=== PATIENT | male | born 1960 | race Caucasian/White ===

== ENCOUNTER 2021-04-26 07:01 | Emergency (ER) | payer BC ==
[~2021-04-26] VITALS: Ht 182.9 cm; Wt 113.6 kg
[2021-04-26 07:16] VITALS: TEMP 97.9
[2021-04-26] MEDS ORDERED: XARELTO20 MG PO (07:27)
[2021-04-26] MEDS ORDERED: CARDIZEM LA120 MG PO (07:27)
[2021-04-26] MEDS ORDERED: ZYLOPRIM 100MG100 MG PO (07:29)
[2021-04-26] MEDS ORDERED: LIPITOR 40MG TA40 MG PO (07:29)
[2021-04-26] MEDS ORDERED: COZAAR 50MG50 MG/TAB PO (07:29)
[2021-04-26] MEDS ORDERED: TOPROL XL 50MG50 MG PO (07:30)
[2021-04-26] MEDS ORDERED: ZOFRAN ODT4 MG PO (09:13)
[2021-04-26 09:30] VITALS: BP 160/108; PULSE 87
== END 2021-04-26 09:40 | disposition home or self-care (01) ==
LOC: COL.ER 07:01
DX: R04.0 Epistaxis (principal); I48.91 Unspecified atrial fibrillation; I25.10 Atherosclerotic heart disease of native coronary artery without angina pectoris; I10 Essential (primary) hypertension; Z79.01 Long term (current) use of anticoagulants; Z79.899 Other long term (current) drug therapy

== ENCOUNTER 2021-04-26 10:10 | Inpatient (IN) | payer BC ==
[~2021-04-26] VITALS: Ht 182.9 cm; Wt 114.0 kg
[2021-04-26] VITALS (166 sets, daily range): BP systolic 130–156; BP diastolic 91–110; PULSE 91–92; TEMP 98.1–98.8; O2SAT 93–100
[~2021-04-26 10:10] MED LIST: CARDIZEM LA120 MG PO; COZAAR 50MG50 MG/TAB PO; LIPITOR 40MG TA40 MG PO; TOPROL XL 50MG50 MG PO; XARELTO20 MG PO; ZOFRAN ODT4 MG PO; ZYLOPRIM 100MG100 MG PO
[2021-04-26 11:54] LABS: BASO % 0.2 % (0.0-2.0); EOS % 0.1 % (0.0-4.0); GRAN # 9.4 K/mm3 (1.4-6.5); GRAN % 84.5 % (42.2-75.2); HEMATOCRIT 47.4 % (42.0-52.0); HEMOGLOBIN 15.9 g/dl (13.5-18.0); LYMPH # 1.1 K/mm3 (1.2-3.4); LYMPH % 9.7 % (20.0-51.0); MEAN CELL VOLUME 93 fl (80.0-100.0); MEAN CORPUSCULAR HEMOGLOBIN 31 pg (27-31); MEAN CORPUSCULAR HGB CONC 34 g/dl (33.0-37.0); MEAN PLATELET VOLUME 11.7 fl (7.4-10.4); MONO # 0.6 K/mm3 (0.1-0.6); MONO % 5.1 % (1.7-9.3); PLATELET COUNT 185 K/mm3 (130-400); RED BLOOD COUNT 5.09 M/mm3 (4.20-5.60); REDCELL DISTRIBUTION WIDTH-CV 13.3 % (11.5-14.5)
[2021-04-26 12:02] LABS: CALCIUM 8.9 mg/dL (8.4-10.2); CREATININE, serum 0.86 mg/dL (0.72-1.25); POTASSIUM 4.9 mmol/L (3.5-4.5)
--- NOTE | 2021-04-26 21:00 | NUR ---
Cardene drip on standby since patient's arrival to ICU at approximately 1500. Patient's BP at this time is 155/110, which is consistent with BPs since shift change at 1900. Patient states he is experiencing a headache and some bloody drainage in throat from epistaxis, similar to what he experienced in the ED prior to initiation of cardene drip. Hospitalist, Candice, notified. Cardene drip restarted. Patient to resume all home medications in the AM.
[2021-04-27] VITALS (308 sets, daily range): BP systolic 124–142; BP diastolic 86–105; PULSE 69–107; TEMP 97.4–98.3; O2SAT 88–100
[2021-04-27 05:34] LABS: BASO % 0.1 % (0.0-2.0); EOS % 0.1 % (0.0-4.0); GRAN # 11.3 K/mm3 (1.4-6.5); GRAN % 77.5 % (42.2-75.2); HEMATOCRIT 44.1 % (42.0-52.0); HEMOGLOBIN 14.6 g/dl (13.5-18.0); LYMPH # 1.7 K/mm3 (1.2-3.4); LYMPH % 11.9 % (20.0-51.0); MEAN CELL VOLUME 93 fl (80.0-100.0); MEAN CORPUSCULAR HEMOGLOBIN 31 pg (27-31); MEAN CORPUSCULAR HGB CONC 33 g/dl (33.0-37.0); MEAN PLATELET VOLUME 11.5 fl (7.4-10.4); MONO # 1.5 K/mm3 (0.1-0.6); PLATELET COUNT 195 K/mm3 (130-400); RED BLOOD COUNT 4.77 M/mm3 (4.20-5.60); REDCELL DISTRIBUTION WIDTH-CV 13.3 % (11.5-14.5)
[2021-04-27 05:49] LABS: CREATININE, serum 0.84 mg/dL (0.72-1.25); POTASSIUM 4.1 mmol/L (3.5-4.5)
--- NOTE | 2021-04-27 07:00 | NUR ---
PT RESTING IN BED. PT'S VSS. PT OFF CARDENE DRIP SINCE 399. WILL CONTINUE TO MONTIOR.
--- NOTE | 2021-04-27 11:31 | NUR ---
warm in worker met with patient and patient's Roro ([phone]) at bedside. 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 Patient doctors currently in [place], but while here they utilizes [facility] for perscriptions. Patient is fully independent with his ADL's and does not utilize any DME to assist with ambulation. Patient has no oxygen needs at home. Patient does not have a DPOA-HC established and does not wish to at this time. Patient's is in agreement. Education provided and what a legal NOK is and who is agent would be. Both verbalize their understanding.
--- NOTE | 2021-04-27 11:33 | NUR ---
First visit from the wood heel attacher. No needs right now.
--- NOTE | 2021-04-27 12:45 | NUR ---
MESSAGE LEFT FOR ENT RN, AWAITING CALL BACK.
--- NOTE | 2021-04-27 15:13 | NUR ---
SPOKE WITH AND STATED OK TO REMOVED RHINO ROCKET. CONTINUE TO MONTIOR BLEEDING AND BP. WILL TRANSFER PT UPSTAIRS. AWAITING BED ASSIGNMENT
--- NOTE | 2021-04-27 16:10 | NUR ---
Patient to room 356 from the ICU, daughter at the bedside. A&Ox4. IV CDI. Nurse oriented the patient to location, room and call light. Denies pain and discomfort. No further needs expressed. Call light within reach
--- NOTE | 2021-04-27 16:10 | NUR ---
REPORT CALLED TO MIA RN. ALL QUESTIONS ANSWERED. 1615-PT TRANSFERED TO WHEELCHAIR AND TRANSPORTED TO ROOM 356. PT HAD PHONE, IPAD AND FINAL INSPECTION SUPERVISOR. MIA MET BEDSIDE/
--- NOTE | 2021-04-27 16:20 | NUR ---
CALLED RETURNING PREVIOUS MESSAGED. WAS INFORMED THAT PT HAD BEEN TRANSFERED UP STAIRS, BP IN THE 150'S, AND RHINO ROCKET HAD BEEN REMOVED.
--- NOTE | 2021-04-27 17:36 | NUR ---
Patient sitting up in bed. A&Ox4. VSS. No reported nose bleeds. IV CDI. Denies pain and discomfort. Independent in the room. Call light within reach
--- NOTE | 2021-04-27 20:30 | NUR ---
Patient is laying in bed, alert and oriented x 4, VSS, denies pain, nausea or vomiting. Telemetry in place. AFIB. HR 80'S. Assessment completed, medications provided. No further needs at this time. Call light within reach.
[2021-04-28 00:55] VITALS: BP 133/86; PULSE 95; TEMP 97.7
[2021-04-28 04:45] VITALS: BP 125/81; PULSE 88; TEMP 97.6
--- NOTE | 2021-04-28 05:33 | NUR ---
Patient has had an uneventful night. SBP 124-135. Report will be given to day RN.
[2021-04-28 06:45] LABS: BASO % 0.1 % (0.0-2.0); EOS % 0.4 % (0.0-4.0); GRAN # 5.3 K/mm3 (1.4-6.5); GRAN % 62.1 % (42.2-75.2); HEMATOCRIT 39.6 % (42.0-52.0); LYMPH # 1.9 K/mm3 (1.2-3.4); LYMPH % 22.9 % (20.0-51.0); MEAN CELL VOLUME 95 fl (80.0-100.0); MEAN CORPUSCULAR HEMOGLOBIN 31 pg (27-31); MEAN CORPUSCULAR HGB CONC 33 g/dl (33.0-37.0); MEAN PLATELET VOLUME 11.9 fl (7.4-10.4); MONO # 1.2 K/mm3 (0.1-0.6); MONO % 14.4 % (1.7-9.3); PLATELET COUNT 157 K/mm3 (130-400); RED BLOOD COUNT 4.16 M/mm3 (4.20-5.60); REDCELL DISTRIBUTION WIDTH-CV 13.4 % (11.5-14.5)
[2021-04-28 07:02] LABS: CALCIUM 8.5 mg/dL (8.4-10.2); CREATININE, serum 0.98 mg/dL (0.72-1.25); POTASSIUM 4.2 mmol/L (3.5-4.5)
[2021-04-28 07:56] VITALS: BP 118/78; PULSE 82; TEMP 98.1
--- NOTE | 2021-04-28 08:45 | NUR ---
Shift assessment complete. Pt resting in bed. A&Ox4. Vitals stable. Lungs CTA. Heart rhythm irregular, rate controlled. Denies pain/dizziness/SOA. No needs reported at this time. Continuing to monitor.
[2021-04-28] MEDS ORDERED: TOPROL XL 50MG50 MG PO (09:12)
[2021-04-28] MEDS ORDERED: CARDIZEM CD 24240 MG PO (09:12)
--- NOTE | 2021-04-28 10:31 | NUR ---
Initial visit; Patient thanked Teacher Hearing Impaired for looking in on him and offering God's blessings.
--- NOTE | 2021-04-28 10:50 | NUR ---
IV to left hand removed w/tip intact. Discharge instructions discussed w/pt and and all questions answered. Pt escorted out by CUSTOMER SERVICE SALES ASSOCIATE w/all belongings.
== END 2021-04-28 10:50 | disposition home or self-care (01) | DRG 305 ==
LOC: COL.ER 10:10 → ICU 12:41 → MEDICAL 04-27 16:15
PROVIDERS: Emergency Medicine; Physician Assistant; ADMIT Student in an Organized Health Care Education/Training Program
PROC: 2Y41X5Z Packing of Nasal Region using Packing Material (ICD-10-PCS; principal; 2021-04-26)
DX: I16.1 Hypertensive emergency (principal); I48.20 Chronic atrial fibrillation, unspecified; I25.10 Atherosclerotic heart disease of native coronary artery without angina pectoris; I10 Essential (primary) hypertension; M10.9 Gout, unspecified; E78.5 Hyperlipidemia, unspecified; R04.0 Epistaxis; D72.829 Elevated white blood cell count, unspecified; E87.5 Hyperkalemia; R73.9 Hyperglycemia, unspecified; I08.1 Rheumatic disorders of both mitral and tricuspid valves; Z79.01 Long term (current) use of anticoagulants; Z95.810 Presence of automatic (implantable) cardiac defibrillator; I25.2 Old myocardial infarction
CPT/HCPCS: 99223-AI; 99233-AI; 99239; J0360; J2405; J7050; J7120